=== PATIENT | female | born 1960 | race Hispanic/Latino ===

== ENCOUNTER 2023-10-08 14:04 | Outpatient (CLI) | payer OTHER | END 2023-10-08 14:05 | disposition home or self-care (01) | LOC: BICRAD 14:04 | PROVIDERS: ATTEND Family Medicine | DX: M25.561 Pain in right knee (principal) ==

== ENCOUNTER 2024-01-21 14:33 | Outpatient (CLI) | payer OTHER | END 2024-01-21 14:34 | disposition home or self-care (01) | LOC: BICULT 14:33 | PROVIDERS: ATTEND Family Medicine | DX: R10.2 Pelvic and perineal pain (principal); Z90.710 Acquired absence of both cervix and uterus | CPT/HCPCS: 76856 ==